=== PATIENT | male | born 1975 | race African-American/Black ===

== ENCOUNTER 2025-04-03 19:06 | Emergency (ER) | payer MEDICAID, OTHER ==
[~2025-04-03] VITALS: Ht 175.3 cm; Wt 68.1 kg
[2025-04-03 19:21] VITALS: BP 120/97; PULSE 81; RESP 18; TEMP 98.9; O2SAT 98
[2025-04-03] MEDS ORDERED: fentaNYL CITRATE 100 MCG/2 ML VL IV ONE (19:30)
[2025-04-03] MEDS ORDERED: SODIUM CHLORIDE 0.9% 1,000 ML IV ONE (19:30)
[2025-04-03] MEDS ORDERED: ONDANSETRON HCL 4 MG/2 ML VIAL IV ONE (19:30)
[2025-04-03 19:51] LABS: Hematocrit 49.2 % (41.0-53.0); Hemoglobin 17.2 g/dL (13.5-17.5); Mean Corpuscular Hemoglobin 31.5 pg (28.0-32.0); Mean Corpuscular Volume 89.9 fL (80.0-100.0); Nucleated Red Blood Cells % 0.0 %
--- NOTE | 2025-04-03 20:01 | ED.PDOC ---
History of Present Illness HPI Comments 49 y/o M is BIBA for c/c of nonradiating, burning abdominal pain, nausea, vomiting, and diarrhea. Patient has a history of pancreatitis and reports on onset of symptoms after eating fried fish on 04/01/25. No reported bloody or bilious vomitus, bloody diarrhea, urinary problems, or further acute symptoms. No known recent sick contacts. Additional history of current tobacco smoker and former alcohol user. 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 Past Medical History Past Medical History (Contd): pancreatitis Surgical History: Denies all surgeries Family History Family History: Unknown Social History Smoker: Cigarettes Alcohol: Sober Drugs: Denies Drug Use Lives In: Home All Other Systems: Reviewed and Negative (Comprehensive systems review obtained and negative except for what is stated in the HPI.) Physical Exam General Appearance: No Apparent Distress, Normal HEENT: Normal ENT Inspection, Pharynx Normal, TMs Normal Neck: Full Range of Motion, Non-Tender, Normal, Normal Inspection Respiratory: Chest Non-Tender, Lungs Clear, No Accessory Muscle Use, No Respiratory Distress, Normal Breath Sounds Cardiovascular: No Edema, No JVD, No Murmur, No Gallop, Normal Peripheral Pulses, Regular Rate/Rhythm Breast Exam: Deferred Gastrointestinal: No Organomegaly, Non Tender, No Pulsatile Mass, Normal Bowel Sounds, Soft Genitalia: Deferred Pelvic: Deferred Rectal: Deferred Extremities: No calf tenderness, Normal capillary refill, Normal inspection, Normal range of motion, Non-tender, No pedal edema Musculoskeletal : Apperance: Normal Neurologic: Alert, paper conservator II-XII nml as Tested, No Motor Deficits, Normal Affect, Normal Mood, No Sensory Deficits Cerebellar Function: Normal Reflexes: Normal Skin: Dry, Normal Color, Warm Lymphatic: No Adenopathy Was a procedure done? Was a procedure done?: No Differential Dx Considerations may include: pancreatitis flare up, gastritis, gastroenteritis, GERD, viral, spoiled food, among others X-Ray, Labs, Meds, VS Vital Signs Date Time Temp Pulse Resp B/P (MAP) Pulse Ox O2 Delivery O2 Flow Rate FiO2 04/03/25 19:21 98.9 81 18 120/97 98 98.9 04/03/25 19:10 68 Lab Test 04/03/25 19:36 Range/Units White Blood Count 12.3 H 4.4-10.8 10^3/uL Red Blood Count 5.47 4.5-5.90 10^6/uL Hemoglobin 17.2 13.5-17.5 g/dL Hematocrit 49.2 41.0-53.0 % Mean Corpuscular Volume 89.9 80.0-100.0 fL Mean Corpuscular Hemoglobin 31.5 28.0-32.0 pg Mean Corpuscular Hemoglobin Concent 35.0 32.0-36.0 g/dL Red Cell Distribution Width 13.8 11.8-14.3 % Platelet Count 318 140-450 10^3/uL Mean Platelet Volume 6.7 L 6.9-10.8 fL Neutrophils (%) (Auto) 71.4 37.0-80.0 % Lymphocytes (%) (Auto) 20.1 10.0-50.0 % Monocytes (%) (Auto) 8.0 0.0-12.0 % Eosinophils (%) (Auto) 0.1 0.0-7.0 % Basophils (%) (Auto) 0.4 0.0-2.0 % Neutrophils # (Auto) 8.8 H 1.6-8.6 10 ^3/uL Lymphocytes # (Auto) 2.5 0.4-5.4 10 ^3/uL Monocytes # (Auto) 1.0 0-1.3 10 ^3/uL Eosinophils # (Auto) 0 0-0.8 10 ^3/uL Basophils # (Auto) 0.1 0-0.2 10 ^3/uL Nucleated Red Blood Cells 0.0 % Sodium Level 140 136-145 mmol/L Potassium Level 3.8 3.5-5.1 mmol/L Chloride Level 104 98-107 mmol/L Carbon Dioxide Level 24 20-31 mmol/L Anion Gap 12 5-15 Blood Urea Nitrogen 15 9-23 mg/dL Creatinine 1.40 H 0.700-1.30 mg/dL Glomerular Filtration Rate Calc 61 >90 mL/min BUN/Creatinine Ratio 10.7 10.0-20.0 Serum Glucose 109 H 74-106 mg/dL Calcium Level 10.7 H 8.7-10.4 mg/dL Total Bilirubin 2.2 H 0.2-1.0 mg/dL Direct Bilirubin 0.6 H <0.3 mg/dL Aspartate Amino Transferase (AST) 19 13-40 U/L Alanine Aminotransferase (ALT) 23 7-40 U/L Alkaline Phosphatase 84 46-116 U/L Total Protein 8.9 H 5.7-8.2 g/dL Albumin 5.4 H 3.2-4.8 g/dL Lipase 48 12-53 U/L Time of 1ST Reevaluation: 19:50 Reevaluation 1ST: Unchanged Time of 2ND Reevaluation: 21:18 Reevaluation 2ND: Patient eloped Patient Education/Counseling: Diagnosis, Treatment Family Education/Counseling: No Family Present Comments Patient was seen by me in who was cooperative and pleasant however while I was away during the central line on another patient patient eloped. SEPSIS Sepsis Screen Date sepsis recognized/suspect: Apr 03, 2025 Time Sepsis recognized/suspect: 1925 Recent Procedure: No On Antibiotic Therapy: No Respiratory Rate >20: No Heart Rate >90: No Temp<36 C (96.8 F) or >38.3 C: No SBP <90 or MAP <65 mmHG: No New Acute Mental Status Change: No Is the patient on CPAP, BIPAP,: No Physician Orders Electrocardigram (04/03/25 19:20) Sodium Chloride 0.9% (04/03/25 19:30) Vital Signs Date Time Temp Pulse Resp B/P (MAP) Pulse Ox O2 Delivery O2 Flow Rate FiO2 04/03/25 19:21 98.9 81 18 120/97 98 98.9 04/03/25 19:10 68 Laboratory Tests Test 04/03/25 19:36 White Blood Count 12.3 10^3/uL (4.4-10.8) H Departure 1 Departure Time of Disposition: 21:19 Impression: Primary Impression: Abdominal pain Additional Impression: Renal insufficiency Disposition: LEFT AWOL/ELOPED Condition: Other (Unknown) Critical Care Note Critical Care Time?: No Stability Stability form required: No Heart Score Heart Score: Heart Score Response (Comments) Value History N/A 0 EKG N/A 0 Age N/A 0 Risk Factors N/A 0 Troponin N/A 0 Total 0 I personally scribed for JD ALVAREZ MD ([email or web address]) on 04/03/25 at 20:01. Electronically submitted by Rory Mccoy [email or web address]). JD ALVAREZ MD Apr 03, 2025 20:01
[2025-04-03 20:08] LABS: Alanine Aminotransferase 23 U/L (7-40); Alkaline Phosphatase 84 U/L (46-116); Anion Gap 12 (5-15); BUN/Creatinine Ratio 10.7 (10.0-20.0); Blood Urea Nitrogen 15 mg/dL (9-23); Carbon Dioxide 24 mmol/L (20-31); Chloride 104 mmol/L (98-107); Potassium 3.8 mmol/L (3.5-5.1); Sodium 140 mmol/L (136-145)
[2025-04-03 20:10] LABS: Albumin 5.4 g/dL (3.2-4.8); Bilirubin, Direct 0.6 mg/dL (<0.3); Bilirubin, Total 2.2 mg/dL (0.2-1.0); Calcium 10.7 mg/dL (8.7-10.4); Glucose 109 mg/dL (74-106); Total Protein 8.9 g/dL (5.7-8.2)
[2025-04-03 20:21] LABS: Lipase 48 U/L (12-53)
--- NOTE | 2025-04-04 00:07 | ECG ---
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
== END 2025-04-03 20:23 | disposition left against medical advice (07) ==
LOC: ER 19:06 → EDBD 19:06 → ER 20:23
DX: N28.9 Disorder of kidney and ureter, unspecified (principal); R10.9 Unspecified abdominal pain; F17.210 Nicotine dependence, cigarettes, uncomplicated; Z87.19 Personal history of other diseases of the digestive system
CPT/HCPCS: 36415; 80048; 80076; 83690; 85025; 93005

== ENCOUNTER 2025-04-04 02:58 | Emergency (ER) | payer MEDICAID ==
[~2025-04-04] VITALS: Ht 175.3 cm; Wt 76.0 kg
--- NOTE | 2025-04-04 03:50 | ED.PDOC ---
History of Present Illness HPI Comments 49 y/o M is BIBA for c/c of nonradiating, burning abdominal pain, nausea, vomiting, and diarrhea. Patient has a history of pancreatitis and reports on onset of symptoms after eating fried fish on 04/01/25. He is returning to the ED after eloping, yesterday. No reported bloody or bilious vomitus, bloody diarr hea, urinary problems, or further acute symptoms. No known recent sick contacts. Additional history of current tobacco smoker and former alcohol user. Chief Complaint: Abdominal Pain Time Seen by MD: 03:30 Reviewed Notes: Nurses Notes, Medications, Allergies Allergies: Coded Allergies: NO KNOWN ALLERGIES (Unverified , 04/03/25) Information Source: Patient Mode of Arrival: Ambulatory Severity: Moderate Timing: Hours Duration: Since onset Prehospital treatment: None Past Medical History PAST MEDICAL HISTORY: Denies Surgical History: Denies all surgeries Family History Family History: Unknown Social History Smoker: Cigarettes Alcohol: Sober Drugs: Denies Drug Use Lives In: Home All Other Systems: Reviewed and Negative (Comprehensive systems review obtained and negative except for what is stated in the HPI.) Physical Exam General Appearance: No Apparent Distress, Normal HEENT: Normal ENT Inspection, Pharynx Normal, TMs Normal Neck: Full Range of Motion, Non-Tender, Normal, Normal Inspection Respiratory: Chest Non-Tender, Lungs Clear, No Accessory Muscle Use, No Respiratory Distress, Normal Breath Sounds Cardiovascular: No Edema, No JVD, No Murmur, No Gallop, Normal Peripheral Pulses, Regular Rate/Rhythm Breast Exam: Deferred Gastrointestinal: No Organomegaly, Non Tender, No Pulsatile Mass, Normal Bowel Sounds, Soft Genitalia: Deferred Pelvic: Deferred Rectal: Deferred Extremities: No calf tenderness, Normal capillary refill, Normal inspection, Normal range of motion, Non-tender, No pedal edema Musculoskeletal : Apperance: Normal Neurologic: Alert, county engineer II-XII nml as Tested, No Motor Deficits, Normal Affect, Normal Mood, No Sensory Deficits Cerebellar Function: Normal Reflexes: Normal Skin: Dry, Normal Color, Warm Lymphatic: No Adenopathy Was a procedure done? Was a procedure done?: No Differential Dx Considerations may include: uremia, renal insufficiency, pancreatitis flare up, gastritis, gastroenteritis, GERD, viral, spoiled food, among others X-Ray, Labs, Meds, VS Vital Signs Date Time Temp Pulse Resp B/P (MAP) Pulse Ox O2 Delivery O2 Flow Rate FiO2 04/04/25 04:21 98.9 89 18 159/118 (132) 90 98.9 04/04/25 04:14 159/118 04/04/25 03:05 97.0 95 18 168/101 98 97.0 Current Medications Medications (Trade) Dose Ordered Sig/Jaxson Route Start Time Stop Time Status Last Admin Fentanyl Citrate 12.5 mcg ONCE ONCE IV 04/04/25 03:45 04/04/25 03:46 DC 04/04/25 04:14 Ondansetron HCl (Zofran) 4 mg ONCE ONCE IV 04/04/25 03:45 04/04/25 03:46 DC 04/04/25 04:14 Sodium Chloride 1,000 ml @ 1,000 mls/hr Q1H ONCE IV 04/04/25 05:15 04/04/25 06:14 04/04/25 05:18 Time of 1ST Reevaluation: 04:00 Reevaluation 1ST: Unchanged Time of 2ND Reevaluation: 05:59 Reevaluation 2ND: Improved Patient Education/Counseling: Diagnosis, Treatment, Prognosis, Need For Follow Up Family Education/Counseling: No Family Present Comments Patient is feeling improved after the last round of medication. The he is waiting for the gallbladder ultrasound. I am signing out this patient to doctor mendez Additional Information Previous history reviewed: April 03, 2025 for abdominal pain The following tests were ordered, and results were reviewed by me: N/A Additional Information was gathered from interviewing the following independent historians: EMS personnel I reviewed and agreed with the following test results read by other providers: N/A I discussed treatment and results with medical personnel and: patient SEPSIS Sepsis Screen Date sepsis recognized/suspect: Apr 04, 2025 Time Sepsis recognized/suspect: 310 Recent Procedure: No On Antibiotic Therapy: No Respiratory Rate >20: No Heart Rate >90: No Temp<36 C (96.8 F) or >38.3 C: No SBP <90 or MAP <65 mmHG: No New Acute Mental Status Change: No Is the patient on CPAP, BIPAP,: No Physician Orders Ct Ab Pel Wo Con-No Oral Or Iv (04/04/25 03:40) Drug Screen (04/04/25 03:40) Gallbladder (04/04/25 04:31) Sodium Chloride 0.9% (04/04/25 05:15) Vital Signs Date Time Temp Pulse Resp B/P (MAP) Pulse Ox O2 Delivery O2 Flow Rate FiO2 04/04/25 04:21 98.9 89 18 159/118 (132) 90 98.9 04/04/25 04:14 159/118 04/04/25 03:05 97.0 95 18 168/101 98 97.0 Medications Medications Dose Ordered Sig/Jaxson Route Start Time Stop Time Status Last Admin Dose Admin Fentanyl Citrate 12.5 mcg ONCE ONCE IV 04/04/25 03:45 04/04/25 03:46 DC 04/04/25 04:14 Ondansetron HCl 4 mg ONCE ONCE IV 04/04/25 03:45 04/04/25 03:46 DC 04/04/25 04:14 Sodium Chloride 1,000 ml @ 1,000 mls/hr Q1H ONCE IV 04/04/25 05:15 04/04/25 06:14 04/04/25 05:18 Departure 1 Departure Time of Disposition: 06:00 Impression: Primary Impression: Abdominal pain Disposition: 30 STILL A PATIENT Condition: Stable Discharged With: Self Critical Care Note Critical Care Time?: No Stability Stability form required: No Heart Score Heart Score: Heart Score Response (Comments) Value History N/A 0 EKG N/A 0 Age N/A 0 Risk Factors N/A 0 Troponin N/A 0 Total 0 I personally scribed for JD ALVAREZ MD ([email or web address]) on 04/04/25 at 03:50. Electronically submitted by Rory Mccoy [email or web address]). JD ALVAREZ MD Apr 04, 2025 03:50
[2025-04-04] MEDS: ONDANSETRON HCL 4 MG/2 ML VIAL IV ONE ×2 (04:14→09:32)
[2025-04-04] MEDS: fentaNYL CITRATE 100 MCG/2 ML VL IV ONE (04:14)
--- NOTE | 2025-04-04 04:23 | DVH ---
EXAM: CT CT AB PEL WO CON-NO ORAL OR IV History: pain Comparison Study: None TECHNIQUE: Multidetector CT of the abdomen and pelvis was performed from lung bases to pubic symphysis. Imaging was performed without IV contrast. Axial, coronal and sagittal multiplanar reformats were obtained from the axial data set by the technologist. Radiation optimization: All CT scans at this facility use at least one of these dose optimization techniques: automated exposure control mA and/or kV adjustment per patient size (includes targeted exams where dose is matched to clinical indication) or iterative reconstruction. Radiation Dose Information: CT Dose: CTDI volume is 5.16 mGy. Dose-length product is 297.79 mGy*cm FINDINGS: Evaluation of solid organs is limited due to lack of intravenous contrast use. Imaged portions of the lung bases appear unremarkable. Liver, spleen, pancreas and adrenal glands appear unremarkable. Small hiatal hernia. Gallbladder mildly distended with possible sludge measuring 3.9 cm in diameter. No evidence of bowel obstruction or focal bowel wall thickening. No free fluid, free air, or adenopathy. Left femoral hardware. IMPRESSION: 1. Very mildly prominent gallbladder, likely containing sludge. If symptoms localize, consider right upper quadrant ultrasound for further evaluation. Otherwise no acute findings.
[2025-04-04] MEDS: SODIUM CHLORIDE 0.9% 1,000 ML IV ONE (05:18)
[2025-04-04] MEDS: MORPHINE SULFATE 4 MG/ML SYR/VIAL ONE (05:29)
[2025-04-04] MEDS: MORPHINE SULFATE INJ 2 MG/ml SYRG IV ONE (05:45)
--- NOTE | 2025-04-04 07:30 | DVH ---
US limited, RUQ INDICATION: biliary colic COMPARISON: None TECHNIQUE: Limited ultrasound of the abdomen was performed and reviewed. FINDINGS: The pancreas is partially obscured by bowel gas. Unremarkable homogeneous liver echogenicity. No evidence of cholelithiasis or gallbladder wall thickening. Negative sonographic Hernandez's sign not evaluated. The common bile duct measures 4 mm. The right kidney is 11.9 cm. No evidence for hydronephrosis. IMPRESSION: No acute sonographic findings in the right upper quadrant.
[2025-04-04] MEDS: MORPHINE SULFATE 4 MG/ML SYR/VIAL IV ONE (09:33)
[2025-04-04 11:14] VITALS: PULSE 71; RESP 14; O2SAT 94
[2025-04-04 11:24] VITALS: BP 158/99; PULSE 71; RESP 13; TEMP 98.7; O2SAT 95
== END 2025-04-04 11:50 | disposition short-term general hospital (02) ==
LOC: EDUNIT# 02:58 → EDBD 02:58 → ER 02:58
DX: R10.9 Unspecified abdominal pain (principal); F17.210 Nicotine dependence, cigarettes, uncomplicated
CPT/HCPCS: 74176; 76705; 96361; 96374; 96375; 96376; 99285; J2270; J2405; J3010; J7030

== ENCOUNTER 2025-04-05 15:29 | Emergency (ER) | payer MEDICAID ==
[~2025-04-05] VITALS: Ht 177.8 cm; Wt 72.2 kg
[2025-04-05 15:32] VITALS: TEMP 97.9
--- NOTE | 2025-04-05 15:42 | ED.PDOC ---
GI ASSESSMENT HPI Comments This is a 49-year-old male who comes in with chief complaint of abdominal pain. The patient has been transported to our facility within the last 48-72 hours for a similar pain. The pain is right and left upper quadrant in nature. The patient states that the pain is a 10/10. There is no radiation of the pain. The patient has been diagnosed with pancreatitis in the past but also was told that he may have some sludge in his gallbladder. There has been no other complaints at this time. EN route, the patient did receive Zofran 4 mg ODT for the nausea. He denies any recent alcohol use but does eat spicy foods. Upon arrival, the patient was also hypertensive at one injured and 182/100 Time Seen by MD: 15:32 Reviewed Notes: Nurses Notes, News Director Notes, Medications, Allergies (No allergies to medications) Allergies: Coded Allergies: NO KNOWN ALLERGIES (Unverified , 04/03/25) Information Source: Patient, Emergency Med Personnel Mode of Arrival: EMS Timing: Days (Started two days ago) Duration: Since onset Prehospital treatment: Folder Hand, Other (Zofran ODT) Quality: Sharp, Stabbing Vomitus: None Stool: Normal Severity: Moderate Recent: Other (History of pancreatitis in the past) Recent Hx of: None Pain Location: RUQ, LUQ Modifying Factors: Nothing Associated sign and symptoms: Nausea, Abdominal Pain Past Medical History Past Medical History (Other): Previous history of pancreatitis Surgical History: Denies all surgeries Family History Family History: Unknown Social History Smoker: Cigarettes Alcohol: Sober Drugs: Marijuana Lives In: Home Constitutional: denies: chills, diaphoresis, fatigue, fever, malaise, sweats, weakness, others EENTM: denies: blurred vision, double vision, ear bleeding, ear discharge, ear drainage, ear pain, ear ringing, eye pain, eye redness, hearing loss, mouth pain, mouth swelling, nasal discharge, nose bleeding, nose congestion, nose pain, photophobia, tearing, throat pain, throat swelling, voice changes, others Respiratory: denies: cough, hemoptysis, orthopnea, SOB at rest, shortness of breath, SOB with excertion, stridor, wheezing, others Cardiovascular: denies: chest pain, dizzy spells, diaphoresis, Dyspnea on exertion, edema, irregular heart beat, left arm pain, lightheadedness, palpitations, PND, syncope, others Gastrointestinal: reports: abdominal pain, nausea; denies: abdomen distended, blood streaked bowels, constipated, diarrhea, dysphagia, difficulty swallowing, hematemesis, melena, poor appetite, poor fluid intake, rectal bleeding, rectal pain, vomiting, others Genitourinary: denies: burning, dysuria, flank pain, frequency, hematuria, incontinence, penile discharge, penile sore, pain, testicle pain, testicle swelling, urgency, others Neurological: denies: dizziness, fainting, headache, left sided numbness, left sided weakness, numbness, paresthesia, pre-existing deficit, right sided numbness, right sided weakness, seizure, speech problems, tingling, tremors, weakness, others Musculoskeletal: denies: back pain, gout, joint pain, joint swelling, muscle pain, muscle stiffness, neck pain, others Integumetry: denies: bruises, change in color, change in hair/nails, dryness, laceration, lesions, lumps, rash, wounds, others Allergic/Immunocompromised: denies: Difficulty Healing, Frequent Infections, Hives, Itching, others Hematologic/Lymphatic: denies: anemia, blood clots, easy bleeding, easy bruising, swollen glands, others Endocrine: denies: excessive hunger, excessive sweating, excessive thirst, excessive urination, flushing, intolerance to cold, intolerance to heat, unexplained weight gain, unexplained weight loss, others Psychiatric: denies: anxiety, bipolar disorder, depression, hopeless, panic disorder, schizophrenia, sleepless, suicidal, others Physical Exam General Appearance: Moderate Distress HEENT: Normal ENT Inspection, Pharynx Normal, TMs Normal Neck: Full Range of Motion, Non-Tender, Normal, Normal Inspection Respiratory: Chest Non-Tender, Lungs Clear, No Accessory Muscle Use, No Respiratory Distress, Normal Breath Sounds Cardiovascular: No Edema, No JVD, No Murmur, No Gallop, Normal Peripheral Pulses, Regular Rate/Rhythm Breast Exam: Deferred Gastrointestinal: Epigastric, No Organomegaly, No Pulsatile Mass, Normal Bowel Sounds, Soft, Tenderness Genitalia: Deferred Pelvic: Deferred Rectal: Deferred Extremities: No calf tenderness, Normal capillary refill, Normal inspection, Normal range of motion, Non-tender, No pedal edema Musculoskeletal : Apperance: Normal Neurologic: Alert, glass calibrator II-XII nml as Tested, No Motor Deficits, Normal Affect, Normal Mood, No Sensory Deficits Cerebellar Function: Normal Reflexes: Normal Skin: Dry, Normal Color, Warm Lymphatic: No Adenopathy EKG EKG : Pulse Rate (adult): 70 [place]: Normal Cardiac Rhythm: NSR Block: None ST: Nonsp Was a procedure done? Was a procedure done?: No GI differential Dx Differential Diagnosis: Appendicitis, Gastritis/PUD, Gastroenteritis, Pancreatitis, UTI, Electrolyte Imbalance, Food Poisoning X-Ray, Labs, Meds, VS Vital Signs Date Time Temp Pulse Resp B/P (MAP) Pulse Ox O2 Delivery O2 Flow Rate FiO2 04/05/25 19:13 170/113 04/05/25 18:32 70 04/05/25 18:15 59 18 162/102 (122) 97 04/05/25 16:52 63 04/05/25 15:32 97.9 74 18 182/100 98 97.9 Lab Test 04/05/25 16:14 Range/Units White Blood Count 12.1 H 4.4-10.8 10^3/uL Red Blood Count 5.19 4.5-5.90 10^6/uL Hemoglobin 15.7 13.5-17.5 g/dL Hematocrit 46.6 41.0-53.0 % Mean Corpuscular Volume 89.9 80.0-100.0 fL Mean Corpuscular Hemoglobin 30.2 28.0-32.0 pg Mean Corpuscular Hemoglobin Concent 33.6 32.0-36.0 g/dL Red Cell Distribution Width 13.2 11.8-14.3 % Platelet Count 286 140-450 10^3/uL Mean Platelet Volume 6.8 L 6.9-10.8 fL Neutrophils (%) (Auto) 76.8 37.0-80.0 % Lymphocytes (%) (Auto) 17.6 10.0-50.0 % Monocytes (%) (Auto) 5.3 0.0-12.0 % Eosinophils (%) (Auto) 0.1 0.0-7.0 % Basophils (%) (Auto) 0.2 0.0-2.0 % Neutrophils # (Auto) 9.3 H 1.6-8.6 10 ^3/uL Lymphocytes # (Auto) 2.1 0.4-5.4 10 ^3/uL Monocytes # (Auto) 0.6 0-1.3 10 ^3/uL Eosinophils # (Auto) 0 0-0.8 10 ^3/uL Basophils # (Auto) 0 0-0.2 10 ^3/uL Nucleated Red Blood Cells 0.0 % Sodium Level 138 136-145 mmol/L Potassium Level 4.0 3.5-5.1 mmol/L Chloride Level 104 98-107 mmol/L Carbon Dioxide Level 26 20-31 mmol/L Anion Gap 8 5-15 Blood Urea Nitrogen 15 9-23 mg/dL Creatinine 1.15 0.700-1.30 mg/dL Glomerular Filtration Rate Calc 77 >90 mL/min BUN/Creatinine Ratio 13.0 10.0-20.0 Serum Glucose 107 H 74-106 mg/dL Calcium Level 9.5 8.7-10.4 mg/dL Total Bilirubin 1.9 H 0.2-1.0 mg/dL Aspartate Amino Transferase (AST) 15 13-40 U/L Alanine Aminotransferase (ALT) 17 7-40 U/L Alkaline Phosphatase 70 46-116 U/L Total Protein 7.8 5.7-8.2 g/dL Albumin 4.7 3.2-4.8 g/dL Lipase 42 12-53 U/L Current Medications Medications (Trade) Dose Ordered Sig/Jaxson Route Start Time Stop Time Status Last Admin Ondansetron HCl (Zofran) 4 mg ONCE ONCE IV 04/05/25 15:45 04/05/25 15:46 DC 04/05/25 19:13 Clonidine HCl (Catapres Tablet) 0.2 mg ONCE ONCE PO 04/05/25 15:45 04/05/25 15:46 DC 04/05/25 19:13 Pantoprazole Sodium (Protonix) 40 mg ONCE ONCE IV 04/05/25 18:30 04/05/25 18:54 DC 04/05/25 19:15 IV Hep-Lock was established The patient's CBC shows an elevated white blood cell count of 12.1 The chemistry panel is within normal limits The lipase is within normal limits The patient was given clonidine 0.2 mg for the elevated push The patient was given Protonix 40 mg IV push The patient was given Zofran 4 mg IV push for the At this time, the patient is being admitted to hospitalist Patient understands and agrees with the management. We did speak with [facility] and they gave us a [facility] authorization [id number] The patient will be transferred to their facility at this time Images Reviewed?: Images reviewed and evaluated by me Time of 1ST Reevaluation: 15:41 Reevaluation 1ST: Unchanged Patient Education/Counseling: Diagnosis, Treatment, Prognosis Family Education/Counseling: No Family Present SEPSIS Sepsis Screen Physician Orders Ct Ab Pel Wo Con-No Oral Or Iv (04/05/25 15:32) Heplock Iv (04/05/25 15:32) Folder Hand (04/05/25 15:32) Blood Pressure (04/05/25 15:32) Pulse Oximetry (04/05/25 15:32) Vital Signs Date Time Temp Pulse Resp B/P (MAP) Pulse Ox O2 Delivery O2 Flow Rate FiO2 04/05/25 19:13 170/113 04/05/25 18:32 70 04/05/25 18:15 59 18 162/102 (122) 97 04/05/25 16:52 63 04/05/25 15:32 97.9 74 18 182/100 98 97.9 Laboratory Tests Test 04/05/25 16:14 White Blood Count 12.1 10^3/uL (4.4-10.8) H Medications Medications Dose Ordered Sig/Jaxson Route Start Time Stop Time Status Last Admin Dose Admin Clonidine HCl 0.2 mg ONCE ONCE PO 04/05/25 15:45 04/05/25 15:46 DC 04/05/25 19:13 Ondansetron HCl 4 mg ONCE ONCE IV 04/05/25 15:45 04/05/25 15:46 DC 04/05/25 19:13 Pantoprazole Sodium 40 mg ONCE ONCE IV 04/05/25 18:30 04/05/25 18:54 DC 04/05/25 19:15 Departure 1 Departure Time of Disposition: 19:31 Impression: Primary Impression: Intractable abdominal pain Additional Impression: Gallbladder sludge Disposition: 51 HOSPICE/MEDICAL FACILITY Condition: Fair Critical Care Note Critical Care Time?: No Stability Stability form required: Yes Stable for transfer: Intended for transfer (Health plan request transfer), To designated facility Heart Score Heart Score: Heart Score Response (Comments) Value History N/A 0 EKG N/A 0 Age N/A 0 Risk Factors N/A 0 Troponin N/A 0 Total 0 JUSTIN,SANDOR B MD Apr 05, 2025 15:42
[2025-04-05 16:51] LABS: Hematocrit 46.6 % (41.0-53.0); Hemoglobin 15.7 g/dL (13.5-17.5); Mean Corpuscular Hemoglobin 30.2 pg (28.0-32.0); Mean Corpuscular Volume 89.9 fL (80.0-100.0); Nucleated Red Blood Cells % 0.0 %
[2025-04-05 17:03] LABS: Alanine Aminotransferase 17 U/L (7-40); Albumin 4.7 g/dL (3.2-4.8); Alkaline Phosphatase 70 U/L (46-116); Anion Gap 8 (5-15); BUN/Creatinine Ratio 13.0 (10.0-20.0); Blood Urea Nitrogen 15 mg/dL (9-23); Calcium 9.5 mg/dL (8.7-10.4); Carbon Dioxide 26 mmol/L (20-31); Chloride 104 mmol/L (98-107); Lipase 42 U/L (12-53); Potassium 4.0 mmol/L (3.5-5.1); Sodium 138 mmol/L (136-145); Total Protein 7.8 g/dL (5.7-8.2)
[2025-04-05 17:08] LABS: Bilirubin, Total 1.9 mg/dL (0.2-1.0); Glucose 107 mg/dL (74-106)
--- NOTE | 2025-04-05 17:38 | DVH ---
EXAM: CT CT AB PEL WO CON-NO ORAL OR IV History: pain Comparison Study: CT CT AB PEL WO CON-NO ORAL OR IV on DOS: 04/04/25 TECHNIQUE: Multidetector CT of the abdomen AND PELVIS without IV contrast. Axial, coronal and sagittal multiplanar reformats were obtained from the axial data set by the technologist. Radiation Dose Information: CT Dose: CTDI volume is 5.57 mGy. Dose-length product is 3.92 mGy*cm FINDINGS: Minimal bibasilar atelectasis. Partially visualized heart is unremarkable. Liver, spleen, pancreas and adrenal glands are unremarkable. Sludge within the [id number] distended Gallbladder. Otherwise, the gallbladder is unremarkable. Kidneys, ureters and urinary bladder unremarkable. Prostate measures 3 x 4.4 x 3.5 cm. Stomach is unremarkable. Small bowel loops are unremarkable. Appendix is not definitely visualized. Without visualization of the Appendix, can not exclude acute appendicitis. Wall thickening of the ascending colon and transverse colon with minimal fat stranding adjacent to the ascending colon. Small to moderate amount of fecal material within the colon. No evidence of intraperitoneal free air or free fluid. No evidence of aortic aneurysm. Mild atherosclerotic calcification of bilateral common iliac arteries. No significant lymphadenopathy. Tiny fat containing umbilical hernia. The soft tissues unremarkable. No evidence of acute osseous abnormalities. Intramedullary hung and dynamic screw fixation of the left proximal femur with streak artifact from hardware limiting evaluation of the adjacent structures suggested perihardware lucency of the proximal femur which may be associated with loosening. IMPRESSION: Colitis involving the ascending and transverse colons. Sludge within the [id number] distended gallbladder which is otherwise unremarkable.
[2025-04-05 18:15] VITALS: O2SAT 97
[2025-04-05] MEDS: ONDANSETRON HCL 4 MG/2 ML VIAL IV ONE (19:13)
[2025-04-05] MEDS: PANTOPRAZOLE 40 MG/10 ML VIAL INJ IV ONE (19:15)
[2025-04-05 19:30] VITALS: BP 177/113; PULSE 80; RESP 16
[2025-04-05] MEDS: MORPHINE SULFATE 4 MG/ML SYR/VIAL IV ONE (19:30)
--- NOTE | 2025-04-09 07:37 | ECG ---
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
== END 2025-04-05 23:39 | disposition left against medical advice (07) ==
LOC: EDUNIT# 15:29 → ER 15:29 → EDBD 15:29 → ER 23:39
DX: K82.8 Other specified diseases of gallbladder (principal); R10.11 Right upper quadrant pain; R10.12 Left upper quadrant pain; F17.210 Nicotine dependence, cigarettes, uncomplicated; F12.90 Cannabis use, unspecified, uncomplicated; Z87.19 Personal history of other diseases of the digestive system; Z88.8 Allergy status to other drugs, medicaments and biological substances
CPT/HCPCS: 36415; 74176; 80053; 83690; 85025; 93005; 96374; 96375; 99285; J2270; J2405; J2470